=== PATIENT | female | born 1965 | race Caucasian/White ===

== ENCOUNTER → 2016-06-05 | Outpatient (CLI) | payer OTHER ==
[~2016-06-05] MED LIST: AMIT10TA PO; CELE200C PO; CYCL10TA2 PO
--- NOTE | 2016-06-05 10:07 | EKG ---
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
--- NOTE | 2016-06-05 10:14 | EKG ---
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
[2016-06-05 10:16] LABS: BASO % 1 % (0-3); EOS % 1 % (0-3); HEMATOCRIT 44.1 % (36.0-47.0); HEMOGLOBIN 14.7 g/dL (12.0-15.5); LYMPH # 2.3 x10^3/uL (1.0-4.8); LYMPH % 32 % (24-48); MEAN CORPUSCULAR HEMOGLOBIN 29 pg (25-35); MEAN CORPUSCULAR HGB CONC 33 g/dL (31-37); MEAN CORPUSCULAR VOLUME 88 fL (79-100); MONO % 7 % (0-9); NEUT % 59 % (31-73); PLATELET COUNT 205 x10^3/uL (140-400); RED BLOOD COUNT 5.01 x10^6/uL (3.50-5.40); RED CELL DISTRIBUTION WIDTH 13.8 % (11.5-14.5); WHITE BLOOD COUNT 7.1 x10^3/uL (4.0-11.0)
[2016-06-05 10:23] LABS: ALBUMIN 4.1 g/dL (3.4-5.0); CALCIUM 9.6 mg/dL (8.5-10.1); CREATININE 0.7 mg/dL (0.6-1.0); GFR 88.2; POTASSIUM 4.1 mmol/L (3.5-5.1)
[2016-06-05 11:05] LABS: PROTHROMBIN TIME PATIENT 12.7 SEC (11.7-14.0)
[2016-06-05 11:48] LABS: BACTERIA,URINE FEW /HPF (0-FEW); BILIRUBIN,URINE NEGATIVE (NEG); GLUCOSE,URINE NEGATIVE (NEG); NITRITE,URINE NEGATIVE (NEG); PH,URINE 6.5; PROTEIN,URINE NEGATIVE (NEG-TRACE); RBC,URINE RARE /HPF (0-2); SQUAMOUS EPITHELIAL CELL,UR FEW /LPF; UROBILINOGEN,URINE 0.2 mg/dL (0.2 mg/dL); WBC,URINE RARE /HPF (0-4)
--- NOTE | 2016-06-05 12:44 | RAD ---
Exam: PA and lateral chest radiograph History: Preoperative, right knee surgery on June 26. Comparison: None. Findings: Cardiomediastinal silhouette is within normal limits for size. Bilateral lung west are free of focal infiltrate. No pleural effusion is seen. Spine fusion changes are seen at the cervicothoracic junction. Impression: No acute cardiopulmonary process.
== END | disposition home or self-care (01) ==
LOC: SURGPAT 08:26
PROVIDERS: ATTEND Orthopaedic Surgery
DX: Z01.818 Encounter for other preprocedural examination (principal)
CPT/HCPCS: 36415; 71020; 80048; 81001; 82040; 85027; 85610; 85651; 85730; 87641; 93005

== ENCOUNTER 2016-06-26 09:27 | Inpatient (IN) | payer OTHER ==
[~2016-06-26] VITALS: Ht 162.6 cm; Wt 78.0 kg
[~2016-06-26 09:27] MED LIST changes: +HYDROmorphone 2 MG/ML VIAL IV PRN; +IV RINGERS,LACTATED 1000ML 1,000 ML IV SCH; +LIDOCAINE 1% 1 ML SYRINGE. ID PRN; +MORPHINE SULFATE 2 MG/ML DISP.SYRIN. IV PRN; +MORPHINE SULFATE 5 MG, KETOROLAC TROMETHAMINE 30 MG, ROPIVacaine 0.5% PF 60 ML, EPINEPH... INT ART ONE; +ONDANSETRON PF 4 MG/2 ML VIAL. IV PRN; +PROCHLORPERAZINE 10 MG/2 ML VIAL. IV PRN; +TRANEXAMIC ACID 1,000 MG in IV NORMAL SALINE 50ML 50 ML INJ ONE; +fentaNYL PF VIAL 100 MCG/2 ML VIAL IV PRN
[2016-06-26] MEDS ORDERED: MIDAZOLAM HCL/PF 2 MG/2 ML VIAL. ONE (10:37)
[2016-06-26] MEDS ORDERED: PROPOFOL 20 ML IV ONE (10:37)
[2016-06-26] MEDS ORDERED: DEXAMETHASONE SOD PHOS 20 MG/5 ML VIAL. ONE (10:37)
[2016-06-26] MEDS ORDERED: fentaNYL PF VIAL 100 MCG/2 ML VIAL ONE ×2 (10:37→12:41)
[2016-06-26] MEDS ORDERED: LIDOCAINE 2% PF Vial for OR 5 ML VIAL. ONE (10:37)
[2016-06-26] MEDS ORDERED: ROCURONIUM 50 MG/5 ML VIAL. ONE (10:37)
[2016-06-26] MEDS ORDERED: ONDANSETRON PF 4 MG/2 ML VIAL. ONE (10:37)
[2016-06-26 10:39] LABS: NEG OBC UR NEG; POS OBC UR POS
[2016-06-26 10:58] LABS: PROTHROMBIN TIME PATIENT 12.6 SEC (11.7-14.0)
[2016-06-26] MEDS ORDERED: HYDROcodone/APAP 7.5/325MG 1 TAB TABLET PO ONE (11:00)
[2016-06-26] MEDS: IV DEXTROSE 5 %-0.45 % NACL 1,000 ML IV SCH ×2 (12:22→20:19)
[2016-06-26] MEDS ORDERED: oxyCODONE/APAP 5/325 1 TAB TABLET PO PRN (12:30)
[2016-06-26] MEDS ORDERED: ACETAMINOPHEN 325 MG TABLET. PO PRN (12:30)
[2016-06-26] MEDS ORDERED: traMADol 50 MG TABLET PO PRN ×2 (12:30)
[2016-06-26] MEDS ORDERED: diphenhydrAMINE 50 MG/ML VIAL IV PRN (12:30)
[2016-06-26] MEDS ORDERED: HYDROcodone/APAP 7.5/325MG 1 TAB TABLET PO PRN (12:30)
[2016-06-26] MEDS ORDERED: MORPHINE SULFATE 10 MG/ML VIAL. IV PRN (12:30)
[2016-06-26] MEDS ORDERED: PROCHLORPERAZINE 10 MG/2 ML VIAL. IV PRN (12:30)
[2016-06-26] MEDS ORDERED: fentaNYL PF VIAL 100 MCG/2 ML VIAL IV PRN ×2 (12:30)
[2016-06-26] MEDS ORDERED: 0.9 % SODIUM CHLORIDE 10 ML DISP.SYRIN. IV PRN (12:30)
[2016-06-26] MEDS ORDERED: ZOLPIDEM 5 MG TABLET. PO PRN (12:30)
[2016-06-26] MEDS ORDERED: MORPHINE SULFATE 4 MG/ML DISP.SYRIN. IV PRN ×2 (12:30)
[2016-06-26] MEDS ORDERED: DEXTROSE 50% 25 GM / 50ML DISP.SYRIN. IV PRN (12:30)
[2016-06-26] MEDS ORDERED: CALCIUM CARBONATE 500 MG TAB.CHEW PO PRN (12:30)
[2016-06-26] MEDS: SENNOSIDES/DOCUSATE 8.6/50MG TABLET. PO SCH (13:00)
--- NOTE | 2016-06-26 13:03 | HP ---
ADMIT DATE: 06/26/2016 PRINCIPAL DIAGNOSIS: Right knee pain and DJD. HISTORY OF PRESENT ILLNESS: The patient is a 51-year-old female who has had longstanding right knee pain ever since a long ago injury and subsequent arthroscopy. She states that about 18 years old, she had had the injury surgery and the knee has never been right since. Her current problems are worse with stairs and increased activity, getting up from a seated position. She said that the knee swells and aches with activity and she avoids any type of impact activities whatsoever in favor of biking, elliptical etc, but states that she is still extremely limited. Previous injections were very short term in action. Viscosupplementation gave partial relief and has been less effective recently. 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 She has worn braces for support, but this make her very uncomfortable and her right knee really has exhausted all those options in terms of bracing, injection, activity modification and given the severe limitation she wants to proceed with a more definitive solution. PAST SURGICAL HISTORY: Significant for right knee arthroscopy and spine surgery. FAMILY HISTORY: She denies any significant family history. PAST MEDICAL HISTORY: Significant for recent gallbladder problem for which she underwent surgery, removal of her gallbladder 2 weeks ago. SOCIAL HISTORY: Denies smoking. Occasional social alcohol consumption and denies drug use. MEDICATIONS: List is reviewed. ALLERGIES: INCLUDE LATEX. REVIEW OF SYSTEMS: Negative for any fever, chills, chest pain, shortness of breath, radiating pain, numbness, tingling. PHYSICAL EXAMINATION: VITAL SIGNS: Per admission sheet. HEENT: Atraumatic, normocephalic. HEART: Regular rate and rhythm. LUNGS: Clear to auscultation bilaterally. ABDOMEN: Benign. EXTREMITIES: Examination of the knees reveals normal ligament stability bilaterally, medial more so than lateral joint line tenderness. No gross instability. Full range of motion, patellofemoral crepitus, without instability, not severe joint line tenderness on the left knee. She has good range of motion, alignment, stability of bilateral hips and ankles with intact motor function, distal pulses, sensation, reflexes and skin in both lower extremities throughout. IMAGING: X-rays show tricompartmental degenerative changes on the right worse than on the left. ASSESSMENT: Degenerative osteoarthritis, right knee. TREATMENT PLAN: I had previously talked to her about the risks, benefits, postoperative course of total knee arthroplasty. She has really exhausted other nonoperative treatment alternatives at this time. She is aware of the possibility of infection, nerve or blood vessel damage, premature wear, loosening, medical or other anesthetic complications among others. All her questions were answered. Consent was obtained and she agrees to proceed with operative evaluation and treatment today and [facility] admission will follow. CANDIS HOLLEY MD DR: EMILIANA/feliciano JOB#: [id number] / [id number]
[2016-06-26] MEDS ORDERED: ESMOLOL 100 MG/10 ML VIAL. IV ONE (13:11)
[2016-06-26] MEDS ORDERED: SEVOFLURANE > 120 MINUTES. IH ONE (13:11)
[2016-06-26] MEDS ORDERED: 0.9 % SODIUM CHLORIDE 50 ML VIAL. IJ ONE (13:46)
[2016-06-26] MEDS ORDERED: MORPHINE SULFATE 10 MG/ML VIAL. ONE (13:46)
[2016-06-26] MEDS ORDERED: PROPOFOL 50 ML IV ONE (14:01)
[2016-06-26] MEDS ORDERED: NEOSTIGMINE METHYLSULFATE 5 MG/5 ML SYRINGE. ONE (14:02)
[2016-06-26] MEDS ORDERED: GLYCOPYRROLATE 1 MG/5 ML VIAL. ONE (14:02)
--- NOTE | 2016-06-26 14:54 | PDOC ---
BRIEF OPERATIVE NOTE Date: June 26, 2016 Pre-Op Diagnosis djd right knee Post-Op Diagnosis same Procedure Performed right total knee arthroplasty Surgeon [facility] Anesthesia Type: General Blood Loss 300cc Specimens Obtained cartilage surfaces to pathology Findings above Complications none CANDIS HOLLEY MD June 26, 2016 14:54
[2016-06-26] MEDS: fentaNYL PF VIAL 100 MCG/2 ML VIAL IV PRN ×4 (15:00→15:24)
--- NOTE | 2016-06-26 15:28 | RAD ---
Examination: 2 views of the right knee History: History of total knee replacement. Comparison: None available Findings: Right total knee arthroplasty in near normal alignment. Postoperative air and fluid identified in the knee joint. Right knee drain tubing identified. Impression: Right total knee arthropathy changes in normal alignment.
[2016-06-26] MEDS ORDERED: WARFARIN 7.5 MG TABLET. PO ONE (16:00)
[2016-06-26 16:05] VITALS: BP 117/59
[2016-06-26 16:30] VITALS: BP 121/59
[2016-06-26 17:00] VITALS: BP 115/59
[2016-06-26] MEDS: FERROUS SULFATE 325 MG TABLET. PO SCH (17:00)
[2016-06-26 17:30] VITALS: BP 122/60
[2016-06-26 18:31] VITALS: BP 120/57
[2016-06-26] MEDS: MORPHINE SULFATE 2 MG/ML DISP.SYRIN. IV PRN (19:23)
[2016-06-26] MEDS: CELECOXIB 200 MG CAPSULE. PO SCH ×2 (21:00→21:56)
[2016-06-26] MEDS: CYCLOBENZAPRINE 10 MG TABLET. PO SCH (21:00)
[2016-06-26] MEDS: AMITRIPTYLINE HCL 10 MG TABLET. PO SCH (21:56)
[2016-06-26 22:30] VITALS: BP 119/56
[2016-06-27] MEDS: MORPHINE SULFATE 2 MG/ML DISP.SYRIN. IV PRN (02:08)
[2016-06-27 05:02] LABS: INR 1.1 (0.8-1.1); PROTHROMBIN TIME PATIENT 13.4 SEC (11.7-14.0)
[2016-06-27] MEDS ORDERED: MAGNESIUM HYDROXIDE 2,400 MG/30 ML ORAL.SUSP. PO PRN (06:00)
[2016-06-27 06:08] VITALS: BP 104/67
[2016-06-27 06:46] LABS: HEMATOCRIT 33.6 % (36.0-47.0); HEMOGLOBIN 10.9 g/dL (12.0-15.5)
[2016-06-27] MEDS: IV DEXTROSE 5 %-0.45 % NACL 1,000 ML IV SCH (08:22)
[2016-06-27] MEDS: MULTIVITAMIN with MINERAL TABLET. PO SCH (08:53)
[2016-06-27] MEDS: SENNOSIDES/DOCUSATE 8.6/50MG TABLET. PO SCH (08:53)
[2016-06-27] MEDS: FERROUS SULFATE 325 MG TABLET. PO SCH ×2 (08:53→16:58)
[2016-06-27] MEDS: CELECOXIB 200 MG CAPSULE. PO SCH ×2 (08:54→21:22)
--- NOTE | 2016-06-27 09:51 | OP ---
DATE OF SURGERY: 06/26/2016 PREOPERATIVE DIAGNOSIS: Right knee degenerative joint disease. POSTOPERATIVE DIAGNOSIS: Right knee degenerative joint disease. PROCEDURE: Right total knee arthroplasty. SURGEON: Carter Treadwell M.D. ASSIST: Cristiana. ESTIMATED BLOOD LOSS: 300 mL. COMPLICATIONS: None, cartilage surfaces to pathology. OPERATIVE INDICATIONS: The patient is a 51-year-old female with history described in her preoperative history and physical that she has had knee pain unresponsive to injections, bracing and other nonoperative measures, very limiting to her activities of daily living, which has been ongoing for many years. She is referred from [facility] and wishes to proceed with total knee arthroplasty. I had previously gone over with her risks, benefits, postoperative course of the operative alternatives and nonoperative alternatives as well. She is particularly aware of the risks of ongoing pain, premature wear or loosening, nerve or blood vessel damage, medical or other anesthetic complications among others. All of her questions were answered. Consent was obtained and she agrees to proceed with operative evaluation and treatment. OPERATIVE TECHNIQUE: The patient was identified, procedure verified, patient placed in the supine position on the operating table. After adequate amounts of general endotracheal anesthesia were administered, a thigh tourniquet was placed on the right lower extremity and the right lower extremity was prepped and draped in standard sterile fashion. After timeout was performed, the patient and procedure identified and verified, a midline incision was made. Bleeding points controlled by electrocautery. Medial parapatellar approach was carried out. Patella was everted, fat pad was excised and a hole was drilled in the central aspect of the femur for the intramedullary alignment guide. Distal cut was made. Measurement carried out to a size 6. Anterior, posterior chamfer cuts were then made. PCL was preserved. The meniscal rim were excised. The extramedullary tibial cutting guide was then placed and a perpendicular cut was made. With the use of 10 and 12 mm spacer block, it is the 12 mm of which was quite tightly fitting. In both flexion and extension, 10 mm provided better laxity and balance. The trial components were then placed consisting of a size D Courtney tibial baseplate, a size 6 Persona femoral component, 10 mm spacer block all provided excellent motion and stability. Patella was measured to be very thin with an 18 mm maximum and as a result minimal cut was made and measured at a size 29. There is really no significant overhanging bone laterally that even needs to be trimmed. Patellar component was drilled and trial component placed. Excellent patellofemoral tracking was noted. Trial components were drilled with the lug holes of the femur drilled and broached in the case of the tibia and removed while any bleeding points were controlled along with the procedure as the tourniquet was not used. A return examination was carried out particularly of the posterior capsule. Gutter areas and any intraarticular portions which were all thoroughly covered and coagulated with Aquamantys device. Thorough irrigation was carried out of the bony surfaces with pulse lavage. They were dried and the following Courtney Persona components were placed with polymethyl methacrylate cement, a size D tibia, size 6 standard femur, a 29 mm patella and a 10 mm trial spacer was placed. Any excess cement was curetted away. Knee was held in extension until dry. A 10 mm vitamin E medial congruent spacer was placed and equivalent motion and stability, patellofemoral tracking were achieved in the trialing process. Hemovac drain and pain catheter were placed. A total of 60 mL of intra-articular mixture were injected into the tissues. Closure was accomplished with #2 Ethibond suture, reinforced with a running #1 Vicryl. Again, excellent patellofemoral tracking noted after the closure. Subcutaneous closure accomplished with buried Vicryl suture and subcuticular Monocryl. Sterile dressings were applied. The patient was returned to recovery room in stable condition having tolerated the procedure well. Please note that Betsy Zendejas was present for the operation performed and was a operations and intelligence assistant and assisted in prep and draping, retraction and the subcuticular closure. CARTER TREADWELL MD DR: EMILIANA/feliciano JOB#: [id number] / [id number]
[2016-06-27] MEDS: HYDROcodone/APAP 10/325 1 TAB TABLET PO PRN ×3 (12:51→21:22)
--- NOTE | 2016-06-27 14:15 | PDOC ---
PROGRESS NOTES Subjective Subjective Problems overnight: Pain control is reasonable has no other complaints currently Objective Vital Signs Vital Signs Date Time Temp Pulse Resp B/P (MAP) Pulse Ox O2 Delivery O2 Flow Rate FiO2 06/27/16 12:51 Room Air 06/27/16 06:08 98.0 67 20 104/67 (79) 98 98.0 06/26/16 15:19 10.0 Physical Exam Dressing drain and pain catheter all intact distal neurovascular status intact good alignment early range of motion Labs Laboratory Tests Test 06/26/16 09:50 06/26/16 10:10 06/27/16 04:00 Urine Test Negative (NEG) Prothrombin Time 12.6 SEC (11.7-14.0) 13.4 SEC (11.7-14.0) Prothromb Time International Ratio 1.0 (0.8-1.1) 1.1 (0.8-1.1) Activated Partial Thromboplast Time 33 SEC (24-38) Hemoglobin 10.9 g/dL (12.0-15.5) Hematocrit 33.6 % (36.0-47.0) Mean Corpuscular Hemoglobin Concent 32 g/dL (31-37) Laboratory Tests Test 06/27/16 04:00 Hemoglobin 10.9 g/dL (12.0-15.5) Hematocrit 33.6 % (36.0-47.0) Mean Corpuscular Hemoglobin Concent 32 g/dL (31-37) Prothrombin Time 13.4 SEC (11.7-14.0) Prothromb Time International Ratio 1.1 (0.8-1.1) Imaging postop x-rays show excellent alignment and positioning of total knee arthroplasty Assessment Assessment POD# [1], S/P [right total knee arthroplasty] Problems: Plan Plan of Care Mobilize with physical therapy Coumadin anticoagulation Plan home with home health on discharge as patient lives on the third level of the building accessible only by stairs CANDIS HOLLEY MD June 27, 2016 14:15
[2016-06-27] MEDS ORDERED: BISACODYL 10 MG SUPP.RECT. PR PRN (16:00)
[2016-06-27] MEDS ORDERED: WARFARIN 5 MG TABLET. PO ONE (16:00)
[2016-06-27 18:09] VITALS: BP 128/68
[2016-06-27] MEDS: AMITRIPTYLINE HCL 10 MG TABLET. PO SCH (21:21)
[2016-06-27] MEDS: CYCLOBENZAPRINE 10 MG TABLET. PO SCH (21:22)
[2016-06-28] MEDS: HYDROcodone/APAP 10/325 1 TAB TABLET PO PRN (01:35)
[2016-06-28 04:28] LABS: HEMATOCRIT 30.9 % (36.0-47.0); HEMOGLOBIN 10.2 g/dL (12.0-15.5)
[2016-06-28 04:37] LABS: INR 1.2 (0.8-1.1); PROTHROMBIN TIME PATIENT 14.9 SEC (11.7-14.0)
[2016-06-28 06:22] VITALS: BP 104/43
[2016-06-28] MEDS: SENNOSIDES/DOCUSATE 8.6/50MG TABLET. PO SCH (08:15)
[2016-06-28] MEDS: MULTIVITAMIN with MINERAL TABLET. PO SCH (08:15)
[2016-06-28] MEDS: oxyCODONE/APAP 7.5/325 1 TAB TABLET PO PRN ×3 (08:15→17:03)
[2016-06-28] MEDS: FERROUS SULFATE 325 MG TABLET. PO SCH ×2 (08:15→17:01)
--- NOTE | 2016-06-28 10:12 | PDOC ---
ORTHO PROGRESS NOTES Subjective Indu is doing well. Pain is controlled, though she is a little bit more sore today. Has some edema in the left hand from an infiltrated IV but improving. Denies chest pain or shortness of breath. Doing well with therapy. Anticipates discharge tomorrow Post-op Day: 2 (Right total knee arthroplasty) Vitals Vital Signs Date Time Temp Pulse Resp B/P (MAP) Pulse Ox O2 Delivery O2 Flow Rate FiO2 06/28/16 08:15 Room Air 06/28/16 06:22 98.5 81 16 104/43 (63) 93 98.5 Labs Laboratory Tests Test 06/26/16 10:10 06/27/16 04:00 06/28/16 04:08 Prothrombin Time 12.6 SEC (11.7-14.0) 13.4 SEC (11.7-14.0) 14.9 SEC (11.7-14.0) Prothromb Time International Ratio 1.0 (0.8-1.1) 1.1 (0.8-1.1) 1.2 (0.8-1.1) Activated Partial Thromboplast Time 33 SEC (24-38) Hemoglobin 10.9 g/dL (12.0-15.5) 10.2 g/dL (12.0-15.5) Hematocrit 33.6 % (36.0-47.0) 30.9 % (36.0-47.0) Mean Corpuscular Hemoglobin Concent 32 g/dL (31-37) 33 g/dL (31-37) Laboratory Tests Test 06/28/16 04:08 Hemoglobin 10.2 g/dL (12.0-15.5) Hematocrit 30.9 % (36.0-47.0) Mean Corpuscular Hemoglobin Concent 33 g/dL (31-37) Prothrombin Time 14.9 SEC (11.7-14.0) Prothromb Time International Ratio 1.2 (0.8-1.1) Notes Patient is awake and alert. Sitting up in bed. Breathing unlabored, no acute distress. Incision covered with dressing, dressing is intact. Moderate edema, skin warm to touch. Neurovascular intact right lower extremity Problems: (1) Degenerative arthritis of right knee Assessment and Plan Continue PT OT, weightbearing as tolerated Anticoagulation per pharmacy Pain controlled Anticipate discharge tomorrow Problem Qualifiers (1) Degenerative arthritis of right knee: Osteoarthritis type: primary Qualified Codes: M17.11 - Unilateral primary osteoarthritis, right knee ALEXANDRA CARBONE TROLLEY CLEANER June 28, 2016 10:12
[2016-06-28] MEDS ORDERED: WARFARIN 5 MG TABLET. PO ONE (16:00)
[2016-06-28] MEDS ORDERED: MAGNESIUM HYDROXIDE 2,400 MG/30 ML ORAL.SUSP. PO PRN (16:30)
[2016-06-28 18:00] VITALS: BP 118/77
[2016-06-28] MEDS: CELECOXIB 200 MG CAPSULE. PO SCH (21:36)
[2016-06-28] MEDS: CYCLOBENZAPRINE 10 MG TABLET. PO SCH (21:36)
[2016-06-28] MEDS: AMITRIPTYLINE HCL 10 MG TABLET. PO SCH (21:36)
[2016-06-29 05:25] LABS: HEMOGLOBIN 10.1 g/dL (12.0-15.5); INR 1.2 (0.8-1.1); PROTHROMBIN TIME PATIENT 14.5 SEC (11.7-14.0)
[2016-06-29 06:38] VITALS: BP 100/57
[2016-06-29] MEDS: FERROUS SULFATE 325 MG TABLET. PO SCH ×2 (09:24→16:55)
[2016-06-29] MEDS: HYDROcodone/APAP 10/325 1 TAB TABLET PO PRN ×3 (09:24→16:59)
[2016-06-29] MEDS: MULTIVITAMIN with MINERAL TABLET. PO SCH (09:24)
[2016-06-29] MEDS: SENNOSIDES/DOCUSATE 8.6/50MG TABLET. PO SCH (09:24)
[2016-06-29] MEDS ORDERED: WARF7.5T48 PO (11:48)
[2016-06-29] MEDS ORDERED: HYDR-2672 PO (11:51)
--- NOTE | 2016-06-29 12:35 | PATHOLOGY ---
PATHOLOGY REPORT * * * * * * * * FINAL DIAGNOSIS: Bone, right knee, removal: - Degenerative osteoarthritis. REPORT ELECTRONICALLY SIGNED BY: Melissa De La Cruz M.D. DATE/TIME: 06/29/2016 12:33 * * * * * * * * GROSS PATHOLOGY: Received in formalin labeled [place]-right knee bone and tissue is an 8.4 x 7.2 x 3.2 cm aggregate of yellow-pineda, hard, irregular fragments of bone with attached whitish pink membranous material and yellow lobular adipose tissue. The articular surfaces of the specimens are yellowish white and smooth with focal areas of peripheral eburnation. Sectioning through the specimens reveals yellow-pineda hard trabeculated cut surfaces and articular surfaces ranging in thickness from 0.1 up to 0.3 cm. Chemical Production Technician sections of the specimens are submitted in cassette A1 following decalcification. (AKA; 06/28/2016) INITIAL CPT CODE(S): A; 63242, 76653 Professional services performed by [employer], [address] [place] [address]. Technical services performed by [employer], [address] [place] [address], [address] [address]. SPECIMEN(S) RECEIVED: A.Right knee bone and tissue CLINICAL HISTORY: Primary osteoarthritis right knee PATIENT: VALERIA DOVE /AGE: 3 1965 (Age: 51) PATIENT #: [id number] ALT CASE #: SPECIMEN COLLECTION DATE: 06/26/2016 SPECIMEN RECEIVED DATE: 06/27/2016 [employer] - [address] [place] [address] - PHONE: [phone] * * * END OF REPORT * * *
[2016-06-29] MEDS ORDERED: WARFARIN 7.5 MG TABLET. PO ONE (14:00)
== END 2016-06-29 18:00 | disposition home health service (06) | DRG 470 ==
LOC: OPSVCIP 09:27 → EDUNIT# 10:50 → 4 SOUTHEST 16:06
PROVIDERS: ADMIT Orthopaedic Surgery; ATTEND Orthopaedic Surgery
PROC: 0SRC0J9 Replacement of Right Knee Joint with Synthetic Substitute, Cemented, Open Approach (ICD-10-PCS; principal; 2016-06-26 10:50)
DX: M17.11 Unilateral primary osteoarthritis, right knee (principal); Z91.040 Latex allergy status
CPT/HCPCS: 36415; 73560; 81025; 85014; 85018; 85610; 85730; 86850; 86900; 86901; 88305; 88311; J0171; J0690; J0780; J1100; J1170; J1885; J2250; J2270; J2405; J2704; J2710; J2795; J3010; J3490; J7030; J7120; 97110; 97116; 97150; 97530; 97535; C1769